=== PATIENT | female | born 1960 | race African-American/Black ===

== ENCOUNTER → 2017-09-03 | Day surgery (SDC) | payer BC ==
[~2017-09-03] MED LIST: LIDOCAINE 1%/EPI 1:100,000 20 ML VIAL.
[2017-09-03] MEDS: LIDOCAINE 1%/EPI 1:100,000 20 ML VIAL. INJ (11:40)
== END | disposition home or self-care (01) ==
LOC: SURG 10:22
DX: L82.1 Other seborrheic keratosis (principal); M19.90 Unspecified osteoarthritis, unspecified site; M51.36 Other intervertebral disc degeneration, lumbar region
CPT/HCPCS: 11402; 88305; J3490